=== PATIENT | male | born 1970 | race Native Hawaiian/Other Pacific Islander ===

== ENCOUNTER 2016-11-19 19:50 | Emergency (ER) | payer BC ==
[~2016-11-19] VITALS: Ht 182.9 cm; Wt 95.3 kg
[2016-11-19 22:06] VITALS: BP 148/84; TEMP 98.7
== END 2016-11-19 22:08 | disposition home or self-care (01) ==
LOC: ED 19:50
DX: T18.9XXA Foreign body of alimentary tract, part unspecified, initial encounter (principal)
CPT/HCPCS: 99283

== ENCOUNTER 2016-11-20 08:18 | Day surgery (SDC) | payer BC ==
[~2016-11-20] VITALS: Ht 30.5 cm; Wt 0.5 kg
== END 2016-11-20 10:00 | disposition home or self-care (01) ==
LOC: OR 08:18
PROC: 0DB68ZZ Excision of Stomach, Via Natural or Artificial Opening Endoscopic (ICD-10-PCS; principal; 2016-11-20)
PROC: 0DC18ZZ Extirpation of Matter from Upper Esophagus, Via Natural or Artificial Opening Endoscopic (ICD-10-PCS; 2016-11-20)
DX: T18.108A Unspecified foreign body in esophagus causing other injury, initial encounter (principal); K29.50 Unspecified chronic gastritis without bleeding; K31.7 Polyp of stomach and duodenum; R13.10 Dysphagia, unspecified
CPT/HCPCS: J1100; J2001; J2250; J2405; J2704; J3010; J3490

== ENCOUNTER 2019-01-28 08:04 | Outpatient (CLI) | payer BC | END 2019-01-28 20:08 | disposition home or self-care (01) | LOC: RESP 08:04 | DX: R06.02 Shortness of breath (principal) ==

== ENCOUNTER 2019-06-17 10:11 | Day surgery (SDC) | payer BC ==
[2019-06-17 11:13] LABS: PLATELET COUNT 257 K/uL (142-355)
[2019-06-17 11:21] LABS: POTASSIUM 4.6 mmol/L (3.6-5.2)
== END 2019-06-17 12:52 | disposition home or self-care (01) ==
LOC: OR 10:11
PROVIDERS: Student in an Organized Health Care Education/Training Program
PROC: 0DJ08ZZ Inspection of Upper Intestinal Tract, Via Natural or Artificial Opening Endoscopic (ICD-10-PCS; principal; 2019-06-17)
DX: K31.7 Polyp of stomach and duodenum (principal); R13.19 Other dysphagia
CPT/HCPCS: 80053; 85027; J2001; J2250; J2405; J2704; J2765

== ENCOUNTER 2021-08-16 14:31 | Emergency (ER) | payer OTHER ==
[~2021-08-16] VITALS: Ht 182.9 cm; Wt 113.4 kg
[2021-08-16 15:50] VITALS: BP 141/83; TEMP 97.8
== END 2021-08-16 15:50 | disposition home or self-care (01) ==
LOC: ED 14:31
DX: F41.8 Other specified anxiety disorders (principal); V49.40XA Driver injured in collision with unspecified motor vehicles in traffic accident, initial encounter; Y92.89 Other specified places as the place of occurrence of the external cause
CPT/HCPCS: 96372; 99282; 99283; J2060